=== PATIENT | male | born 1945 | race Caucasian/White ===

== ENCOUNTER 2017-09-18 12:29 | Emergency (ER) | payer OTHER, MEDICARE ==
[~2017-09-18] VITALS: Ht 175.3 cm; Wt 90.9 kg
[2017-09-18 12:30] VITALS: BP 135/60; PULSE 103; RESP 13; TEMP 98.6; O2SAT 97
[2017-09-18 12:58] LABS: AUTOMATED NEUTROPHIL # 6.5 TH/MM3 (1.8-7.7); BASOPHIL % 0.5 % (0.0-2.0); EOSINOPHIL # 0.2 TH/MM3 (0-0.4); EOSINOPHIL % 3.1 % (0.0-4.0); HEMATOCRIT 44.9 % (39.0-51.0); HEMOGLOBIN 14.9 GM/DL (13.0-17.0); LYMPH % 5.5 % (9.0-44.0); LYMPHOCYTE # 0.4 TH/MM3 (1.0-4.8); MEAN CELL VOLUME 94.4 FL (80.0-100.0); MEAN CORPUSCULAR HEMOGLOBIN 31.3 PG (27.0-34.0); MEAN CORPUSCULAR HGB CONC 33.2 % (32.0-36.0); MEAN PLATELET VOLUME 6.8 FL (7.0-11.0); MONO % 4.6 % (0.0-8.0); MONOCYTE # 0.3 TH/MM3 (0-0.9); NEUT % 86.3 % (16.0-70.0); PLATELET COUNT 174 TH/MM3 (150-450); RED BLOOD COUNT 4.76 MIL/MM3 (4.50-5.90); RED CELL DISTRIBUTION WIDTH 14.2 % (11.6-17.2); WHITE BLOOD COUNT 7.5 TH/MM3 (4.0-11.0)
[2017-09-18 13:14] LABS: BACTERIA, URINE MANY /hpf; BILIRUBIN, URINE NEG (NEG); BLOOD, URINE SMALL (NEG); GLUCOSE,URINE 1000 mg/dL (NEG); KETONE, URINE TRACE mg/dL (NEG); NITRITE,URINE POS (NEG); PH, URINE 5.5 (5.0-8.5); SQUAMOUS EPITHELIAL CELL URINE <1 /hpf (0-5); URINE COLOR YELLOW (YELLW/STRAW); URINE LEUKOCYTE ESTERASE LARGE (NEG); WHITE BLOOD CELL CLUMPS RARE
[2017-09-18 13:15] LABS: ALBUMIN 3.1 GM/DL (3.4-5.0); AST (GOT) 29 U/L (15-37); BLOOD UREA NITROGEN 13 MG/DL (7-18); CALCIUM 9.5 MG/DL (8.5-10.1); CHLORIDE 100 MEQ/L (98-107); CREATININE 1.46 MG/DL (0.60-1.30); GLOMERULAR FILTRATION RATE 48 ML/MIN (>89); GLUCOSE,RANDOM 259 MG/DL (74-106); SODIUM (NA) 136 MEQ/L (136-145)
[2017-09-18 13:17] LABS: ALT (GPT) 55 U/L (12-78)
[2017-09-18 13:19] LABS: ALKALINE PHOSPHATASE 107 U/L (45-117); TOTAL BILIRUBIN ADULT 0.6 MG/DL (0.2-1.0); TOTAL PROTEIN 8.1 GM/DL (6.4-8.2)
--- NOTE | 2017-09-18 13:59 | PD ---
HPI Chief Complaint: Complaint Time Seen by Provider: 13:52 Travel History International Travel<30 days: No Contact w/Intl Traveler<30days: No Traveled to known affect area: No History of Present Illness HPI 72-year-old male [facility] for urinary tract infection and worries of possible urosepsis with fever of 100.1 this morning. Patient states he has had some nausea but no vomiting, denies significant abdominal pain or cramping other than urinary frequency and burning with urination. He states his urine has been cloudy for the past several days. He states symptoms started Sunday, it is now Sunday. She does not feel that he is retaining fluids or urine at this time. He has no chest pain or shortness of breath. He has no significant flank pain. He is allergic to sulfa and lisinopril. PFSH Past Medical History Cardiovascular Problems: Yes Diabetes: Yes Social History Alcohol Use: Yes Tobacco Use: No Substance Use: No Allergies-Medications (Allergen,Severity, Reaction): Coded Allergies: Sulfa (Sulfonamide Antibiotics) (Verified Allergy, Unknown, 09/18/17) lisinopril (Verified Allergy, Unknown, 09/18/17) Review of Systems Except as stated in HPI: all other systems reviewed are Neg General / Constitutional: Positive: Fever, Chills Eyes: No: Visual changes HENT: No: Headaches Cardiovascular: No: Chest Pain or Discomfort Respiratory: No: Shortness of Breath Gastrointestinal: Positive: Nausea, No: Abdominal Pain Genitourinary: Positive: Urgency, Frequency, Dysuria, No: Nocturia, Hematuria, Decreased Urinary Output, Incontinence, Pelvic Pain, Flank Pain Musculoskeletal: No: Pain Skin: No Rash Neurologic: No: Weakness Psychiatric: No: Depression Endocrine: No: Polydipsia Hematologic/Lymphatic: No: Easy Bruising Physical Exam Narrative GENERAL: Patient is pleasant and in no acute distress. SKIN: Warm and dry. Normal color. Normal turgor. No rash. HEAD: Atraumatic. Normocephalic. EYES: Pupils equal and round. No scleral icterus. No injection or drainage. ENT: No nasal bleeding or discharge. Mucous membranes pink and moist. Pharynx is clear. Airway is patent. NECK: Trachea midline. Supple and nontender. CARDIOVASCULAR: Regular rate and rhythm. RESPIRATORY: No accessory muscle use. Clear to auscultation. Breath sounds equal bilaterally. GASTROINTESTINAL: Abdomen soft, non-tender, nondistended. Hepatic and splenic margins not palpable. No significant abdominal tenderness with palpation. No CVA tenderness. MUSCULOSKELETAL: Extremities without clubbing, cyanosis, or edema. No obvious deformities. NEUROLOGICAL: Awake and alert. No obvious cranial nerve deficits. Motor grossly within normal limits. Five out of 5 muscle strength in the arms and legs. Normal speech. PSYCHIATRIC: Appropriate mood and affect; insight and judgment normal. Data Data Last Documented VS Vital Signs Date Time Temp Pulse Resp B/P (MAP) Pulse Ox O2 Delivery O2 Flow Rate FiO2 09/18/17 12:30 98.6 103 13 135/60 (85) 97 Orders Orders Complete Blood Count With Diff (09/18/17 12:35) Comprehensive Metabolic Panel (09/18/17 12:35) Urinalysis - C+S If Indicated (09/18/17 12:35) Urine Culture (09/18/17 12:45) Ceftriaxone Inj (Rocephin Inj) (09/18/17 14:00) Lidocaine 1% Inj (Xylocaine 1% Inj) (09/18/17 14:00) Ciprofloxacin (Cipro) (09/18/17 14:00) Labs Laboratory Tests Test 09/18/17 12:45 09/18/17 12:52 Urine Color YELLOW Urine Turbidity HAZY Urine pH 5.5 Urine Specific Stephan 1.025 Urine Protein 30 mg/dL Urine Glucose (UA) 1000 mg/dL Urine Ketones TRACE mg/dL Urine Occult Blood SMALL Urine Nitrite POS Urine Bilirubin NEG Urine Urobilinogen LESS THAN 2.0 MG/DL Urine Leukocyte Esterase LARGE Urine RBC 8 /hpf Urine WBC /hpf Urine WBC Clumps RARE Urine Squamous Epithelial Cells <1 /hpf Urine Bacteria MANY /hpf Microscopic Urinalysis Comment CULTURE INDICATED White Blood Count 7.5 TH/MM3 Red Blood Count 4.76 MIL/MM3 Hemoglobin 14.9 GM/DL Hematocrit 44.9 % Mean Corpuscular Volume 94.4 FL Mean Corpuscular Hemoglobin 31.3 PG Mean Corpuscular Hemoglobin Concent 33.2 % Red Cell Distribution Width 14.2 % Platelet Count 174 TH/MM3 Mean Platelet Volume 6.8 FL Neutrophils (%) (Auto) 86.3 % Lymphocytes (%) (Auto) 5.5 % Monocytes (%) (Auto) 4.6 % Eosinophils (%) (Auto) 3.1 % Basophils (%) (Auto) 0.5 % Neutrophils # (Auto) 6.5 TH/MM3 Lymphocytes # (Auto) 0.4 TH/MM3 Monocytes # (Auto) 0.3 TH/MM3 Eosinophils # (Auto) 0.2 TH/MM3 Basophils # (Auto) 0.0 TH/MM3 CBC Comment DIFF FINAL Differential Comment Blood Urea Nitrogen 13 MG/DL Creatinine 1.46 MG/DL Random Glucose 259 MG/DL Total Protein 8.1 GM/DL Albumin 3.1 GM/DL Calcium Level 9.5 MG/DL Alkaline Phosphatase 107 U/L Aspartate Amino Transf (AST/SGOT) 29 U/L Alanine Aminotransferase (ALT/SGPT) 55 U/L Total Bilirubin 0.6 MG/DL Sodium Level 136 MEQ/L Potassium Level 3.5 MEQ/L Chloride Level 100 MEQ/L Carbon Dioxide Level 29.0 MEQ/L Anion Gap 7 MEQ/L Estimat Glomerular Filtration Rate 48 ML/MIN MDM Medical Decision Making Medical Screen Exam Complete: Yes Emergency Medical Condition: Yes Medical Record Reviewed: Yes Differential Diagnosis Urinary tract infection. Pyelonephritis. Urinary retention. Prostatitis. Urosepsis. Narrative Course Patient is medically stable at time of exam. Labs were ordered in triage including CBC, CMP, and urinalysis. CBC shows no significant leukocytosis. CMP significant for creatinine of 1.46, with a GFR 48. Random glucose is elevated to 59. Otherwise no significant findings noted. Urinalysis shows 30 protein, thousand, trace of ketones, small occult blood, it is nitrite positive, he has large leukocyte trace, with white blood cell clumps noted and many bacteria on high-power field. Urine culture is placed. Patient is given 1000 mg Rocephin IM as well as 500 mg Cipro by mouth. Patient is not felt to be uroseptic. Patient is Continued on Keflex 500 mg 3 times a day as well as Cipro 500 mg twice a day. Both of these are for 7 days. Patient is to follow-up with the [facility] to ensure improvement. Diagnosis Primary Impression: Urinary tract infection Qualified Codes: N30.01 - Acute cystitis with hematuria Additional Impression: Prostatitis Qualified Codes: N41.0 - Acute prostatitis Referrals: [facility] [place] Patient Instructions: Dysuria (ED), General Instructions, Prostatitis (ED) Additional Instructions: CBC shows no significant leukocytosis. CMP significant for creatinine of 1.46, with a GFR 48. Random glucose is elevated to 59. Otherwise no significant findings noted. Urinalysis shows 30 protein, thousand, trace of ketones, small occult blood, it is nitrite positive, he has large leukocyte trace, with white blood cell clumps noted and many bacteria on high-power field. Urine culture is placed. Patient is given 1000 mg Rocephin IM as well as 500 mg Cipro by mouth. Patient is not felt to be uroseptic. Patient is Continued on Keflex 500 mg 3 times a day as well as Cipro 500 mg twice a day. Both of these are for 7 days. Patient is to follow-up with the [facility] to ensure improvement. Med/Other Pt SpecificInfo: Prescription(s) given Scripts Phenazopyridine (Pyridium) 100 Mg Tab 100 MG PO Q8H Y for DYSURIA, #12 TAB 0 Refills Prov: Ratna Venegas MD 09/18/17 Cephalexin (Keflex) 500 Mg Cap 500 MG PO Q8H for Infection for 7 Days, #21 CAP 0 Refills Prov: Ratna Venegas MD 09/18/17 Ciprofloxacin (Cipro) 500 Mg Tab 500 MG PO BID for Infection for 7 Days, #14 TAB 0 Refills Prov: Ratna Venegas MD 09/18/17 Disposition: 01 DISCHARGE HOME Condition: Stable Sony Francis Sep 18, 2017 13:59
[2017-09-18] MEDS ORDERED: CIPROFLOXACIN 500 MG TAB PO ONE (14:00)
[2017-09-18] MEDS ORDERED: LIDOCAINE HCL 1% 20 ML VIAL INFIL ONE (14:00)
[2017-09-18] MEDS ORDERED: cefTRIAXone INJ 1,000 MG in SODIUM CHLORIDE 0.9% INJ 100 ML IV ONE (14:00)
[2017-09-18] MEDS ORDERED: PHEN0.4T PO (14:10)
[2017-09-18] MEDS ORDERED: CEPH-460 PO (14:10)
[2017-09-18] MEDS ORDERED: CIPR-9 PO (14:10)
[2017-09-18] MEDS ORDERED: LIDOCAINE HCL 1% PF 30 ML VIAL XX ONE (14:30)
[2017-09-18] MEDS ORDERED: LIDOCAINE HCL 1% PF 2 ML VIAL OTHER ONE (14:45)
[2017-09-18 15:53] VITALS: BP 138/62
== END 2017-09-18 15:54 | disposition home or self-care (01) ==
LOC: NEPD 12:29
DX: N30.01 Acute cystitis with hematuria (principal); N41.9 Inflammatory disease of prostate, unspecified; B96.89 Other specified bacterial agents as the cause of diseases classified elsewhere
CPT/HCPCS: 80053; 81001; 85025; 87077; 87086; 87186; 96372; 99284; J0696